=== PATIENT | female | born 1960 | race Caucasian/White ===

== ENCOUNTER 2019-04-13 22:15 | Emergency (ER) | payer OTHER ==
[~2019-04-13] VITALS: Ht 170.2 cm; Wt 53.3 kg
[~2019-04-13 22:15] MED LIST: CLON1TAB PO; TRAZ-175 PO
[2019-04-13 23:33] LABS: BASOPHILS # (AUTO) 0.03 x10^3/uL (0-0.1); BASOPHILS % (AUTO) 1 % (0-1); EOSINOPHILS # (AUTO) 0.24 x10^3/uL (0-0.4); EOSINOPHILS % (AUTO) 5 % (1-7); LYMPHOCYTES # (AUTO) 1.64 x10^3/uL (1-3.4); LYMPHOCYTES % (AUTO) 31 % (22-44); MD NO; MEAN CORPUSCULAR HEMOGLOBIN 31.6 pg (27.0-34.8); MEAN CORPUSCULAR HGB CONC 34.1 g/dL (32.4-35.8); MEAN CORPUSCULAR VOLUME 92.6 fL (80-100); MONOCYTES # (AUTO) 0.37 x10^3/uL (0.2-0.8); MONOCYTES % (AUTO) 7 % (2-9); NEUTROPHILS # (AUTO) 3.01 x10^3/uL (1.8-6.8); NEUTROPHILS % (AUTO) 57 % (42-75); PLATELET COUNT 188 x10^3/uL (130-400); RED BLOOD COUNT 4.79 x10^6/uL (3.82-5.3); RED CELL DISTRIBUTION WIDTH 13.6 % (9.6-15.2)
[2019-04-13 23:41] LABS: ALANINE AMINOTRANSFERASE 22 U/L (12-78); ALBUMIN 3.7 g/dL (3.4-5.0); ANION GAP 4 mmol/L (5-15); CALCIUM 10.1 mg/dL (8.5-10.1); CHLORIDE 113 mmol/L (98-107); CREATININE 0.85 mg/dL (0.55-1.02)
[2019-04-13 23:46] LABS: ALKALINE PHOSPHATASE 75 U/L (45-117); BILIRUBIN,TOTAL 0.3 mg/dL (0.2-1.0); TROPONIN I < 0.015 ng/mL (0.000-0.045)
[2019-04-14 00:12] VITALS: BP 140/95
== END 2019-04-14 01:06 | disposition home or self-care (01) ==
LOC: ED 04-14 00:45
DX: I10 Essential (primary) hypertension (principal); M54.5 Low back pain; R00.0 Tachycardia, unspecified; F17.200 Nicotine dependence, unspecified, uncomplicated
CPT/HCPCS: 36415; 80053; 84443; 84484; 85025; 93005; 99284

== ENCOUNTER 2019-10-01 13:55 | Outpatient (CLI) | payer OTHER | END 2019-10-01 23:59 | disposition home or self-care (01) | LOC: STAR 13:55 | PROVIDERS: ATTEND Anesthesiology | DX: Z01.818 Encounter for other preprocedural examination (principal); Z11.59 Encounter for screening for other viral diseases | CPT/HCPCS: 36415; 87635 ==

== ENCOUNTER 2019-10-05 10:55 | Day surgery (SDC) | payer OTHER ==
[~2019-10-05] VITALS: Ht 170.2 cm; Wt 53.0 kg
[2019-10-05] MEDS ORDERED: CHLORHEXIDINE 15 ML UDC MM STA (11:12)
[2019-10-05 11:14] VITALS: BP 118/83
[2019-10-05] MEDS ORDERED: CHLORHEXIDINE 15 ML UDC ONE (11:28)
[2019-10-05] MEDS ORDERED: VITAMIN D (11:39)
[2019-10-05] MEDS ORDERED: CALCIUM (11:39)
[2019-10-05] MEDS ORDERED: VITAMIN C (11:39)
[2019-10-05] MEDS ORDERED: LISI-170 PO (11:39)
[2019-10-05] MEDS ORDERED: EPHEDRINE 50 MG/ML, 1ML IVPush PRN (12:00)
[2019-10-05] MEDS ORDERED: EPHEDRINE 50 MG/ML, 1ML IM PRN (12:00)
[2019-10-05] MEDS ORDERED: HALOPERIDOL 5 MG/ML IV PRN (12:00)
[2019-10-05] MEDS ORDERED: KETOROLAC 30 MG/1 ML IVPush PRN (12:00)
[2019-10-05] MEDS ORDERED: HYDROmorphone 1 MG/ML, 1ML INJ IVPush PRN (12:00)
[2019-10-05] MEDS ORDERED: METHOCARBAMOL 1,000 MG in DEXTROSE 5% 100 ML IV PRN (12:00)
[2019-10-05] MEDS ORDERED: LACTATED RINGERS 1,000 ML IV SCH (12:00)
[2019-10-05] MEDS ORDERED: METOCLOPRAMIDE 5 MG/ML, 2ML IVPush PRN (12:00)
[2019-10-05] MEDS ORDERED: LORazepam 2 MG/ML, 1ML IVPush PRN (12:00)
[2019-10-05] MEDS ORDERED: MEPERIDINE/PF 25MG/0.5ML IVPush PRN (12:00)
[2019-10-05] MEDS ORDERED: LABETALOL 5MG/ML, 20ML IV PRN (12:00)
[2019-10-05] MEDS ORDERED: ALBUTEROL/IPRATROPIUM 2.5MG/0.5MG, 3 ML NPPB PRN (12:00)
[2019-10-05] MEDS ORDERED: DIPHENHYDRAMINE 50 MG/ML, 1ML IVPush PRN (12:00)
[2019-10-05] MEDS ORDERED: hydrALAzine 20 MG/ML, 1ML IV PRN (12:00)
[2019-10-05] MEDS ORDERED: ACETAMINOPHEN 325 MG TABLET PO PRN (12:00)
[2019-10-05] MEDS ORDERED: MIDAZOLAM 1 MG/ML, 2ML IV PRN (12:00)
[2019-10-05] MEDS ORDERED: ONDANSETRON 2MG/ML, 2ML IVPush PRN (12:00)
[2019-10-05] MEDS ORDERED: FENTANYL PF 100 MCG/2ML IV PRN (12:00)
[2019-10-05] MEDS ORDERED: HYDROcodone/APAP 7.5-325MG/15ML UDC PO PRN (12:00)
[2019-10-05] MEDS ORDERED: DIAZEPAM 5 MG/ML, 2ML IVPush PRN (12:00)
[2019-10-05] MEDS ORDERED: OXYcodone 5 MG/5 ML ORAL.SOL UDC PO PRN (12:00)
[2019-10-05] MEDS ORDERED: ROCURONIUM 10MG/ML,5ML ONE (12:02)
[2019-10-05] MEDS ORDERED: LIDOCAINE-MPF 2% ,5ML ONE (12:02)
[2019-10-05] MEDS ORDERED: DEXAMETHASONE 4 MG/ML, 1ML ONE (12:02)
[2019-10-05] MEDS ORDERED: PROPOFOL 10 MG/ML, 20ML ONE (12:02)
[2019-10-05] MEDS ORDERED: GLYCOPYRROLATE 0.2MG/1ML, 5ML ONE (12:02)
[2019-10-05] MEDS ORDERED: MIDAZOLAM 1 MG/ML, 5ML ONE (12:03)
[2019-10-05] MEDS ORDERED: FENTANYL PF 250 MCG/5ML ONE (12:03)
[2019-10-05 12:12] LABS: ALBUMIN 4.3 g/dL (3.4-5.0); ANION GAP 6 mmol/L (5-15); CALCIUM 9.9 mg/dL (8.5-10.1); CHLORIDE 113 mmol/L (98-107)
[2019-10-05 12:16] LABS: ALANINE AMINOTRANSFERASE 13 U/L (12-78); ALKALINE PHOSPHATASE 81 U/L (45-117); BILIRUBIN,TOTAL 0.6 mg/dL (0.2-1.0); CREATININE 0.98 mg/dL (0.55-1.02); TOTAL PROTEIN 8.1 g/dL (6.4-8.2)
[2019-10-05] MEDS ORDERED: NEOSPORIN OINT, 15GM ONE (13:17)
[2019-10-05] MEDS ORDERED: BUPIVACAINE/PF-EPI 0.5% 1:200K ONE (13:17)
[2019-10-05] MEDS ORDERED: CEFAZOLIN 1,000 MG ONE (14:02)
[2019-10-05] MEDS ORDERED: DIAZEPAM 5 MG/ML, 2ML ONE (15:34)
[2019-10-05] MEDS ORDERED: FENTANYL PF 100 MCG/2ML ONE (15:44)
[2019-10-05] MEDS ORDERED: OXYcodone 5 MG/5 ML ORAL.SOL UDC ONE (15:45)
== END 2019-10-05 18:00 | disposition home or self-care (01) ==
LOC: OUT 10:55
PROVIDERS: ATTEND Orthopaedic Surgery
DX: S42.021A Displaced fracture of shaft of right clavicle, initial encounter for closed fracture (principal); I10 Essential (primary) hypertension; F41.9 Anxiety disorder, unspecified; F17.210 Nicotine dependence, cigarettes, uncomplicated; Z79.1 Long term (current) use of non-steroidal anti-inflammatories (NSAID); Z79.891 Long term (current) use of opiate analgesic; Z79.899 Other long term (current) drug therapy; Z82.49 Family history of ischemic heart disease and other diseases of the circulatory system; W18.09XA Striking against other object with subsequent fall, initial encounter; Y93.89 Activity, other specified; Y92.89 Other specified places as the place of occurrence of the external cause; Y99.8 Other external cause status
CPT/HCPCS: 23515; 36415; 73000; 76000; 80053; C1713; J0690; J1100; J1885; J2250; J2704; J2800; J3010; J3360; J7120